=== PATIENT | male | born 1980 ===

== ENCOUNTER 2017-07-14 19:41 | Emergency (ER) | payer SELFPAY ==
[2017-07-14 19:55] VITALS: TEMP 97.6
[2017-07-14] MEDS ORDERED: Sodium Chloride 0.9% 1,000 ML IV ONE (20:30)
--- NOTE | 2017-07-14 21:08 | CT ---
EXAM: CT Head Without Intravenous Contrast CLINICAL HISTORY: 37 years old, male; Condition or disease; Headache; Headache not specified; Additional info: Pain TECHNIQUE: Axial computed tomography images of the head/brain without intravenous contrast. All CT scans at this facility use one or more dose reduction techniques, viz.: automated exposure control; ma/kV adjustment per patient size (including targeted exams where dose is matched to indication; i.e. head); or iterative reconstruction technique. COMPARISON: No relevant prior studies available. FINDINGS: Brain: No intracranial hemorrhage. No mass. No definite edema. Ventricles: No hydrocephalus. Bones/joints: No acute fracture. Soft tissues: Unremarkable. Sinuses: No acute sinusitis. Mastoid air cells: No mastoid effusion. Orbits: Unremarkable as visualized. IMPRESSION: 1. No definite acute intracranial abnormality.
--- NOTE | 2017-07-14 21:18 | C.PDOC ---
History Of Present Illness 37 yo male c/o "pressure behind the eyes" for five days. Believes this pain is causing his headache, nausea, photophobia and occasional blurry vision. Pt was taking Motrin without relief for the symptoms. He was evaluated by ophthomaology 2 days ago , Dr Adler and yesterday by neuro-ophthomology Dr Harris. Pt was instructed to get CT, MRI and labs but has no insurance therefore to come get evaluated. (-) neurological change or focal deficits (-)vomiting (- ) fever (-) neck pain (-) URI symptoms (-) eye discharge or FB sensation. Time Seen by Provider: 07/14/17 20:19 Chief Complaint (Nursing): Eye Problem History Per: Patient History/Exam Limitations: no limitations Onset/Duration Of Symptoms: Days Current Symptoms Are (Timing): Still Present Quality: Pressure Wears Contact Lens?: No Past Medical History Vital Signs: Last Vital Signs Temp 97.6 F 07/14/17 19:52 Pulse 74 07/14/17 22:33 Resp 20 07/14/17 22:33 BP 121/70 07/14/17 22:33 Pulse Ox 97 07/15/17 04:39 Family History: States: Unknown Family Hx - Social History Hx Alcohol Use: Yes Hx Substance Use: No Review Of Systems Except As Marked, All Systems Reviewed And Found Negative. Eyes: Positive for: Pain. Negative for: Eyelid Inflammation Neurological: Positive for: Headache Physical Exam - Physical Exam Appears: Well, Non-toxic, No Acute Distress Skin: Normal Color, Warm, Dry Head: Atraumatic, Normacephalic Eye(s): bilateral: Normal Inspection, PERRL, EOMI Ear(s): Bilateral: Normal Nose: Normal Throat: Normal, No Erythema, No Exudate Neck: Normal ROM, Supple Chest: Symmetrical Cardiovascular: Rhythm Regular Respiratory: Normal Breath Sounds Extremity: Normal ROM Neurological/Psych: Oriented x3, Normal Speech, Normal Cognition, Normal Cranial Nerves (2-12 grossly intact, no focal deficits) ED Course And Treatment - Laboratory Results Result Diagrams: 07/14/17 21:25 07/14/17 21:25 O2 Sat by Pulse Oximetry: 97 Progress Note: REglan and Toradol ordered. On re-evaluation, pt notes pain improved minimally. Patient is resting comfortably, on cell phone. Ptis tolerating PO, no neurologic deficit, rash, fever, or nuchal rigidity. Patient was instructed to follow up with physician/clinic in 1-2 days or return to ED if symptoms persist or worsen. Case discussed and pt evaluated by Dr Matos, agreed upon plan and discharge. Disposition - Disposition Disposition: HOME/ ROUTINE Disposition Time: 21:59 Condition: STABLE Additional Instructions: Follow up with primary medical doctor in 1-3 days without fail for further evaluation. Take medications as prescribed. Return to the emergency department at any time if symptoms persist or worsen. Prescriptions: Naproxen [Naprosyn] 1 tab PO BID PRN #20 tab PRN Reason: Pain Instructions: Migraine Headache (ED) Forms: [employer] (Thai) - Clinical Impression Clinical Impression: Ocular migraine
[2017-07-14 21:29] LABS: BASO % 0.6 % (0.0-2.0); EOS # 0.2 K/uL (0.0-0.7); EOS % 2.3 % (0.0-4.0); HEMATOCRIT 36.7 % (35.0-51.0); LYMPH # 3.2 K/uL (1.0-4.3); MEAN CELL VOLUME 85.2 fL (80.0-94.0); MEAN CORPUSCULAR HEMOGLOBIN 30.7 pg (27.0-31.0); MEAN PLATELET VOLUME 7.8 fL (7.2-11.7); MONO % 12.3 % (0.0-10.0); RED CELL DISTRIBUTION WIDTH 13.4 % (11.5-14.5); WHITE BLOOD COUNT 7.9 K/uL (4.8-10.8)
[2017-07-14 21:41] LABS: ALB/GLOB RATIO 0.9 (1.0-2.1); ALKALINE PHOSPHATASE 53 U/L (38-126); ALT/SGPT 47 U/L (21-72); AST/SGOT 22 U/L (17-59); BILIRUBIN,TOTAL 0.4 mg/dL (0.2-1.3); BLOOD UREA NITROGEN 16 mg/dL (9-20); CALCIUM 8.6 mg/dl (8.6-10.4); CARBON DIOXIDE 27 mmol/L (22-30); CHLORIDE 102 mmol/L (98-107); GFR AFRICAN-AMERICAN > 60; GLUCOSE,RANDOM 106 mg/dL (75-110); POTASSIUM 3.8 mmol/L (3.6-5.2); SODIUM 135 mmol/L (132-148); TOTAL PROTEIN 8.1 g/dL (6.3-8.3)
[2017-07-14 22:34] VITALS: BP 121/70; PULSE 74; RESP 20
[2017-07-15 04:40] VITALS: O2SAT 97
== END 2017-07-14 22:33 | disposition home or self-care (01) ==
LOC: C.ER 19:41
DX: G43.109 Migraine with aura, not intractable, without status migrainosus (principal)
CPT/HCPCS: 70450; 80053; 85025; 96361; 96374; 96375; 99284; J1885; J2765; J7040